=== PATIENT | female | born 1980 | race American Indian/Alaskan Native ===

== ENCOUNTER 2019-02-13 16:30 | Emergency (ER) | payer MEDICAID ==
[2019-02-13] MEDS ORDERED: ATROVENT IH ONE (17:08)
[2019-02-13] MEDS ORDERED: PROVENTIL IH ONE (17:08)
--- NOTE | 2019-02-13 17:14 | Emergency Department Report ---
HPI - General Chief Complaint: Adult Asthma Time Seen by Provider: 02/13/19 17:00 - HPI HPI: Room 18 The patient is a 38-year-old female presented with a chief complaint of "anxiety/asthma attack." The patient states today while in the shower she began to have shortness of breath. The patient states she was looking for her MDI but her shortness of breath worsened prompting her to call EMS. EMS arrived and administered Solu-Medrol 125 mg IV, magnesium sulfate and albuterol. Patient currently states she feels all right. Patient is to chest tightness that she always feels whenever she has an asthma attack. Patient denies pain of any type Location: Lungs Duration: [See above] Quality: Shortness of breath Severity: Moderate Modifying factors: [see above] Context: [see above] Mode of transportation: [not driving] ED Past Medical Hx - Past Medical History Hx Psychiatric Treatment: Yes (anxiety, schizophernia) Hx Asthma: Yes - Surgical History Additional Surgical History: c section x 3 - Family History Family history: no significant - Social History Smoking Status: Former Smoker (none 1 month) Substance Use Type: None (denies illicit drug use), Alcohol (occasional) - Medications Home Medications: Home Medications Medication Instructions Recorded Confirmed Last Taken Type Ondansetron (Nf) [Zofran] 8 mg PO Q8HR PRN #15 tablet 10/05/13 Unknown Rx Paliperidone Palmitate(Nf) [Invega 234 mg IM QMONTH 10/05/13 Unknown History Sustenna] Potassium Chloride [K-Dur] 20 meq PO QDAY #5 tablet 10/05/13 Unknown Rx Trazodone HCl [Trazodone] 150 mg PO 10/05/13 Unknown History buPROPion SR [Wellbutrin Sr] 150 mg PO BID 10/05/13 10/05/13 Unknown History Amoxicillin [Trimox CAP] 1,000 mg PO Q8H #60 capsule 02/05/15 Unknown Rx Fluticasone [Flonase] 1 spray NS QDAY #1 bottle 02/05/15 Unknown Rx Promethazine /Codeine 5 ml PO Q6H PRN #50 ml 02/05/15 Unknown Rx [Phenergan/Codeine 6.25-10 mg/5 ml] ALBUTEROL Inhaler (OR & NICU) 2 puff IH QID PRN #1 inhalation 02/13/19 Unknown Rx [Proair] Albuterol Sulfate [Albuterol 0.63% 0.63 mg IH TID PRN #90 ml 02/13/19 Unknown Rx NEBS] Prednisone [predniSONE 10 mg 10 mg PO .TAPER #1 tab.ds.pk 02/13/19 Unknown Rx (6-Day Pack, 21 Tabs)] ED Review of Systems ROS: Stated complaint: DIFFICULTY BREATHING Other details as noted in HPI Constitutional: no symptoms reported Eyes: denies: eye pain ENT: denies: throat pain Respiratory: shortness of breath, wheezing Cardiovascular: denies: chest pain Endocrine: no symptoms reported Gastrointestinal: denies: abdominal pain Genitourinary: denies: dysuria Musculoskeletal: denies: back pain Neurological: denies: headache Physical Exam - Physical Exam Physical Exam: GENERAL: The patient is well-developed well-nourished female lying on stretcher not appearing to be in acute distress. [] HEENT: Normocephalic. Atraumatic. Extraocular motions are intact. Patient has moist mucous membranes. NECK: Supple. Trachea midline CHEST/LUNGS: Faint expiratory wheezing. There is no respiratory distress noted. HEART/CARDIOVASCULAR: Regular. There is no tachycardia. There is no gallop rub or murmur. ABDOMEN: Abdomen is soft, nontender. Patient has normal bowel sounds. There is no abdominal distention. SKIN: There is no rash. There is no diaphoresis. NEURO: The patient is awake, alert, and oriented. The patient is cooperative. The patient has normal speech MUSCULOSKELETAL: There is no evidence of acute injury. ED Medical Decision Making - Lab Data Result diagrams: 02/13/19 17:32 02/13/19 17:32 Laboratory Tests 02/13/19 02/13/19 02/13/19 17:32 17:32 17:32 WBC 11.1 H RBC 4.62 Hgb 14.2 Hct 42.5 MCV 92 MCH 31 MCHC 34 RDW 13.5 Plt Count 200 Lymph % (Auto) 11.9 L [place] % (Auto) 3.2 Eos % (Auto) 1.9 Baso % (Auto) 0.2 Lymph # 1.3 Forest # 0.4 Eos # 0.2 Baso # 0.0 Seg Neutrophils % 82.8 H Seg Neutrophils # 9.2 H Sodium 137 Potassium 3.2 L Chloride 101.2 Carbon Dioxide 22 Anion Gap 17 BUN 8 Creatinine 0.5 L Estimated GFR > 60 BUN/Creatinine Ratio 16 Glucose 115 H Calcium 9.3 Total Creatine Kinase 99 CK-MB (CK-2) 1.4 CK-MB (CK-2) Rel Index 1.4 Troponin T < 0.010 NT-Pro-B Natriuret Pep 8.56 HCG, Qual Negative - Radiology Data Radiology results: image reviewed (chest x-ray) interpreted by me: Chest x-ray-no focal infiltrates, no pneumothorax - Differential Diagnosis acute asthma exacerbation, pneumonia, ACS, CHF Critical care attestation.: If time is entered above; I have spent that time in minutes in the direct care of this critically ill patient, excluding procedure time. ED Disposition Clinical Impression: Acute asthma exacerbation, Shortness of breath Disposition: TO HOME OR SELFCARE Is pt being admited?: No Does the pt Need Aspirin: No Condition: Stable Instructions: Asthma (ED) Additional Instructions: Return to the emergency department immediately should you develop worsening symptoms, fever, inability to tolerate food or liquid or any other concerns. Prescriptions: Albuterol Sulfate [Albuterol 0.63% NEBS] 0.63 mg IH TID PRN #90 ml PRN Reason: Wheezing Prednisone [predniSONE 10 mg (6-Day Pack, 21 Tabs)] 10 mg PO .TAPER #1 tab.ds.pk ALBUTEROL Inhaler (OR & NICU) [Proair] 2 puff IH QID PRN #1 inhalation PRN Reason: Shortness Of Breath Referrals: PRIMARY CARE, [Primary Care Provider] - 3-5 Days Time of Disposition: 19:28
[2019-02-13 17:36] VITALS: BP 132/81
[2019-02-13 18:00] LABS: Basophils % (Auto) 0.2 % (0.0-1.8); Eosinophils # (Auto) 0.2 K/mm3 (0.0-0.4); Eosinophils % (Auto) 1.9 % (0.0-4.3); Hematocrit 42.5 % (30.3-42.9); Hemoglobin 14.2 gm/dl (10.1-14.3); Lymphocytes # (Auto) 1.3 K/mm3 (1.2-5.4); Lymphocytes % (Auto) 11.9 % (13.4-35.0); Mean Corpuscular HGB Conc 34 % (30-34); Mean Corpuscular Volume 92 fl (79-97); Monocytes # (Auto) 0.4 K/mm3 (0.0-0.8); Monocytes % (Auto) 3.2 % (0.0-7.3); Platelet Count 200 K/mm3 (140-440); Red Blood Count 4.62 M/mm3 (3.65-5.03); Red Cell Distribution Width 13.5 % (13.2-15.2)
[2019-02-13 18:20] LABS: Creatine Kinase MB 1.4 ng/mL (0.0-4.0)
[2019-02-13 18:24] LABS: BUN/Creatinine Ratio 16; Blood Urea Nitrogen 8 mg/dL (7-17); Calcium 9.3 mg/dL (8.4-10.2); Hemolysis Index 26
[2019-02-13] MEDS ORDERED: K-DUR PO ONE (19:24)
--- NOTE | 2019-02-13 20:39 | XRay Report ---
History: Shortness of breath FINDINGS: Single frontal view of the chest was acquired and demonstrates that the heart is normal in size. The lungs appear clear. The pleura and mediastinum are within normal limits. IMPRESSION: No active disease in the chest This document is electronically signed by Kush Maya MD., February 13 2019 08:36:15 PM ET
== END 2019-02-13 20:06 | disposition home or self-care (01) ==
LOC: ED 16:30
DX: J45.901 Unspecified asthma with (acute) exacerbation (principal); F41.9 Anxiety disorder, unspecified; F20.9 Schizophrenia, unspecified; Z87.891 Personal history of nicotine dependence
CPT/HCPCS: 36415; 71045; 80048; 82550; 82553; 83880; 84484; 84703; 85025; 94644

== ENCOUNTER 2019-03-15 10:21 | Emergency (ER) | payer MEDICAID ==
[2019-03-15] MEDS ORDERED: PROVENTIL IH ONE (10:34)
[2019-03-16 18:45] VITALS: BP 133/85
== END 2019-03-15 11:46 | disposition left against medical advice (07) ==
LOC: ED 10:21
DX: J45.909 Unspecified asthma, uncomplicated (principal); Z53.21 Procedure and treatment not carried out due to patient leaving prior to being seen by health care provider

== ENCOUNTER 2019-05-30 04:20 | Emergency (ER) | payer MEDICAID ==
[2019-05-30] MEDS ORDERED: ATIVAN IM PRN (04:25)
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
[2019-05-30] MEDS ORDERED: ZOFRAN ONE (04:50)
[2019-05-30] MEDS ORDERED: ZOFRAN IV ONE (04:59)
[2019-05-30 05:16] LABS: Hematocrit 38.4 % (30.3-42.9); Hemoglobin 13.1 gm/dl (10.1-14.3); Mean Corpuscular HGB Conc 34 % (30-34); Mean Corpuscular Volume 92 fl (79-97); Platelet Count 206 K/mm3 (140-440); Red Blood Count 4.16 M/mm3 (3.65-5.03); Red Cell Distribution Width 13.1 % (13.2-15.2)
[2019-05-30 05:34] LABS: BUN/Creatinine Ratio 19; Blood Urea Nitrogen 13 mg/dL (7-17); Calcium 8.5 mg/dL (8.4-10.2); Hemolysis Index 10
[2019-05-30] MEDS ORDERED: KCL 10MEQ/100ML 20 MEQ/200 ML BAG IV ONE (06:03)
[2019-05-30] MEDS ORDERED: K-DUR PO ONE (06:16)
[2019-05-30] MEDS ORDERED: NACL 0.9% 1000 ML 1,000 ML IV ONE (06:32)
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
[2019-05-30 08:42] LABS: Bilirubin,Urine NEG (Negative); Blood,Urine MOD (Negative); Color,Urine Yellow (Yellow); Mucus,Urine FEW /HPF; Protein,Urine <15 mg/dL mg/dL (Negative); Urobilinogen,Urine < 2.0 mg/dL (<2.0)
[2019-05-30 08:49] LABS: Amphetamine Screen,Urine PRESUMPTIVE NEGATIVE; Benzodiazepines Screen,Urine PRESUMPTIVE NEGATIVE; Methadone Screen,Urine PRESUMPTIVE NEGATIVE; Opiate Screen,Urine PRESUMPTIVE NEGATIVE
[2019-05-30 09:20] LABS: Cannabinoid Screen,Urine PRESUMPTIVE POSITIVE; Cocaine Screen,Urine PRESUMPTIVE POSITIVE
[2019-05-30 13:06] VITALS: BP 115/71
== END 2019-05-30 13:55 ==
LOC: ED 04:20
DX: F10.120 Alcohol abuse with intoxication, uncomplicated (principal); F14.10 Cocaine abuse, uncomplicated; F12.10 Cannabis abuse, uncomplicated; F41.9 Anxiety disorder, unspecified; F20.9 Schizophrenia, unspecified; J45.909 Unspecified asthma, uncomplicated; F17.200 Nicotine dependence, unspecified, uncomplicated; Z79.899 Other long term (current) drug therapy
CPT/HCPCS: 36415; 80048; 80307; 81001; 82550; 83735; 84702; 85027; 93005; 93010; 96374; 99284; G0480; J2405; J3480; J7030; 80320; 96361